=== PATIENT | female | born 1930 | race Caucasian/White ===

== ENCOUNTER → 2018-01-18 | Outpatient (CLI) | payer MEDICARE, OTHER ==
[~2018-01-18] MED LIST: ADVIL200 MG PO; ALEVE; ALEVE220 M1 PO; ASPIRIN81 M1; ASPIRIN81 MG PO; DIAPER RASH OI113 GM TOP; DIOVAN HCT 1601 EAC1 PO; DIOVAN160 MG PO; EXCEDRIN MIGRA1 EAC3 PO; HYDROXYZINE; I-CAPS AREDS S1 EACH; I-CAPS WITH LU1 EACH PO; LEVOTHYROXINE100 MCG; LEVOTHYROXINE100 MCG PO; LUTEIN 15 MG S1 EACH PO; MICARDIS HCT 81 EACH; MYRBETRIQ50 MG PO; OMEPRAZOLE20 MG PO; PRILOSEC; PROPRANOLOL HCL60 M1; ULTRAM50 MG; proctozone TOP
[2018-01-18 09:28] LABS: BASOPHILS % 0.7 % (0.0-1.0); EOSINOPHILS # (AUTO) 0.4 (0.0-0.4); EOSINOPHILS % 7.5 % (0.0-6.0); HEMATOCRIT 35.7 % (34.2-44.1); HEMOGLOBIN 11.7 g/dL (12.0-16.0); LYMPHOCYTES % 36.4 % (18.0-39.1); MEAN CORPUSCULAR HEMOGLOBIN 30.1 pg (28-32); MEAN CORPUSCULAR HGB CONC 32.8 g/dL (31-35); MEAN CORPUSCULAR VOLUME 91.8 fL (81-99); MONOCYTES # (AUTO) 0.7 (0.2-0.8); MONOCYTES % 12.6 % (4.4-11.3); NEUTROPHILS # (AUTO) 2.4 (2.1-6.9); NEUTROPHILS % 42.6 % (38.7-80.0); PLATELET COUNT 169 x10e3/uL (140-360); RED BLOOD COUNT 3.89 x10e6/uL (3.6-5.1); RED CELL DISTRIBUTION WIDTH 12.7 % (11.7-14.4)
[2018-01-18 10:08] LABS: THYROID STIMULATING HORMONE 0.005 uIU/mL (0.350-4.940)
== END ==
LOC: LAB 09:11
PROVIDERS: ATTEND General Practice
DX: R11.0 Nausea (principal); E03.9 Hypothyroidism, unspecified
CPT/HCPCS: 36415; 82947; 84443; 85025

== ENCOUNTER → 2018-04-15 | Outpatient (CLI) | payer MEDICARE, OTHER | LOC: LAB 10:11 | PROVIDERS: ATTEND General Practice | DX: E03.9 Hypothyroidism, unspecified (principal) | CPT/HCPCS: 36415; 84443 ==

== ENCOUNTER → 2018-05-27 | Day surgery (SDC) | payer MEDICARE, OTHER ==
[2018-05-23 11:51] LABS: BASOPHILS # (AUTO) 0.1 (0.0-0.1); BASOPHILS % 0.8 % (0.0-1.0); EOSINOPHILS # (AUTO) 0.3 (0.0-0.4); EOSINOPHILS % 3.1 % (0.0-6.0); HEMOGLOBIN 12.5 g/dL (12.0-16.0); LYMPHOCYTES % 24.3 % (18.0-39.1); MEAN CORPUSCULAR HEMOGLOBIN 31.8 pg (28-32); MEAN CORPUSCULAR HGB CONC 33.8 g/dL (31-35); MEAN CORPUSCULAR VOLUME 94.1 fL (81-99); MONOCYTES # (AUTO) 0.8 (0.2-0.8); NEUTROPHILS # (AUTO) 5.2 (2.1-6.9); NEUTROPHILS % 61.6 % (38.7-80.0); PLATELET COUNT 238 x10e3/uL (140-360); RED BLOOD COUNT 3.93 x10e6/uL (3.6-5.1); RED CELL DISTRIBUTION WIDTH 13.4 % (11.7-14.4)
[~2018-05-27] MED LIST changes: +FENTANYL CITRATE/PF 100MCG/2 ML INJ ONE; +GLYCOPYRROLATE INJ 1MG/ 5 ML SYR ONE; +LIDOCAINE HCL 2% LOCAL INJ 5 ML SDV VIAL INJ ONE; +MIDAZOLAM HCL 2 MG/2 ML VIAL ONE; +PROPOFOL IV EMULSION 10 MG/ML 20 ML VIAL ONE
--- NOTE | 2018-05-27 10:13 | Operative Report ---
DATE OF PROCEDURE: May 27, 2018 REFERRING PHYSICIAN: Dr. Melvin Funk PROCEDURE PERFORMED: Esophagogastroduodenoscopy with biopsies. INDICATIONS FOR EGD: Upper abdominal pain exacerbated with meals, excessive belching. MEDICATION: Patient was done under MAC. Please see anesthesiologist's note. PROCEDURE: With the patient in the left lateral decubitus position, the flexible fiberoptic Olympus gastroscope was introduced into the esophagus under direct visualization without any difficulty. The esophagus appeared to be within normal limits. The scope was then advanced with ease into the stomach, traversing a small hiatal hernia. Mucosa overlying the antrum and the body revealed some patchy erythema and low-grade to moderate edema, and biopsies were obtained and sent to stain for H. pylori. An approximately 6-mm ulcer with somewhat heaped-up margins without active bleeding or stigmata of recent hemorrhage was noted in the proximal antrum along the greater curvature, and biopsies were obtained. The pylorus was of normal contour and shape. It was intubated with ease, and the scope was advanced all the way to the 2nd portion of the duodenum. The scope was then withdrawn slowly. Mucosa overlying the proximal 2nd portion and the duodenal bulb appeared to be within normal limits. The scope was then withdrawn back into the stomach and retroflexed. The mucosa overlying the fundus and the cardia appeared to be within normal limits. The scope was then straightened out. Stomach was decompressed. Scope was subsequently withdrawn. Patient tolerated the procedure well. IMPRESSION 1. Normal esophagus. 2. Small hiatal hernia. 3. Gastritis, biopsied. Biopsies sent to stain for H. pylori. 4. Gastric ulcer, proximal antrum greater curvature, with somewhat heaped-up margins, biopsies obtained. PLAN: Follow up histology. Increase omeprazole to 40 mg 1 p.o. a.c. b.i.d. Job#: [id number] cc:MELVIN FUNK M.D.
== END | disposition home or self-care (01) ==
LOC: OR 06:52
PROVIDERS: ATTEND Internal Medicine Gastroenterology
DX: K25.9 Gastric ulcer, unspecified as acute or chronic, without hemorrhage or perforation (principal); K31.7 Polyp of stomach and duodenum; K29.50 Unspecified chronic gastritis without bleeding; K44.9 Diaphragmatic hernia without obstruction or gangrene; K20.9 Esophagitis, unspecified; I10 Essential (primary) hypertension; I44.4 Left anterior fascicular block; E03.9 Hypothyroidism, unspecified; Z88.2 Allergy status to sulfonamides; Z01.810 Encounter for preprocedural cardiovascular examination; Z01.812 Encounter for preprocedural laboratory examination; Z79.82 Long term (current) use of aspirin; Z86.73 Personal history of transient ischemic attack (TIA), and cerebral infarction without residual deficits
CPT/HCPCS: 36415; 43239; 85025; 88305; 88312; 93005; J2001; J2250; J3490

== ENCOUNTER → 2018-06-15 | Outpatient (CLI) | payer MEDICARE, OTHER ==
[~2018-06-15] MED LIST changes: -FENTANYL CITRATE/PF 100MCG/2 ML INJ ONE; -GLYCOPYRROLATE INJ 1MG/ 5 ML SYR ONE; -LIDOCAINE HCL 2% LOCAL INJ 5 ML SDV VIAL INJ ONE; -MIDAZOLAM HCL 2 MG/2 ML VIAL ONE; -PROPOFOL IV EMULSION 10 MG/ML 20 ML VIAL ONE
--- NOTE | 2018-06-15 09:32 | Diagnostic Imaging Report ---
PROCEDURE:ABDOMINAL ULTRASOUND COMPARISON:CT abdomen and pelvis 04/16/2017. INDICATIONS:Abdomen Pain FINDINGS: Liver: 12 cm in length in the right midclavicular line. Normal hepatic parenchymal echogenicity. No focal mass. Main portal vein: 1.2 cm in caliber. Hepatopedal flow. Gallbladder: No shadowing calculus, wall thickening, or pericholecystic fluid. Common Bile Duct: 0.5 cm in caliber. No echogenic filling defect. Sonographic Grier's sign: Reported as negative. Right kidney: 9.1 cm in length. No solid or cystic mass, echogenic calculi, or hydronephrosis. Extrarenal pelvis again noted, similar to that seen on comparison CT. Normal parenchymal echogenicity. Left kidney: 8.9 cm in length. No solid or cystic mass, echogenic calculi, or hydronephrosis. Normal parenchymal echogenicity. Spleen: 7.4 cm in length. Uniform parenchymal echotexture. Pancreas: The visualized portions of the pancreas are normal. Inferior vena cava: Patent. Aorta: Non-aneurysmal. Ascites: None. CONCLUSION: Unremarkable abdominal ultrasound. Dictated by: Sav Craig M.D. on 06/15/2018 at 8:29 Electronically approved by: Sav Craig M.D. on 06/15/2018 at 8:29
== END ==
LOC: US 07:34
PROVIDERS: ATTEND Internal Medicine Gastroenterology
DX: R10.9 Unspecified abdominal pain (principal)
CPT/HCPCS: 76700

== ENCOUNTER → 2019-05-18 | Outpatient (CLI) | payer MEDICARE, OTHER | LOC: LAB 10:58 | PROVIDERS: ATTEND General Practice | DX: E03.9 Hypothyroidism, unspecified (principal) | CPT/HCPCS: 36415; 84443 ==

== ENCOUNTER 2019-06-01 23:03 | Observation (INO) | payer MEDICARE, OTHER ==
[~2019-06-01] VITALS: Ht 160 cm; Wt 68.0 kg
--- OUTSIDE RECORDS SUMMARY | 2019-06-01 23:07 | XMS REPORT | Clinical Summary ---
Author Author [facility] Organization [facility] Address Unknown Phone Unavailable Care Team Providers Care Retail Loan Officer Name Role Phone PCP Unavailable Allergies Not on File Medications Not on file Active Problems Not on file Social History Date Tobacco Use Types Packs/Day Years Used Never Assessed Sex Assigned at Date Recorded Not on file Industry Job Start Date Occupation Not on file Not on file Not on file Travel End Travel History Travel Start No recent travel history available. Last Filed Vital Signs Not on file Plan of Treatment Not on file Results Not on fileafter 05/31/2018 Insurance Payer Benefit Subscriber ID Type Phone Address Plan / Group MEDICARE MEDICARE A xxxxxxxxxx Medicare B MCR SUPPLEMENT/INDIVIDUAL GENERIC xxxxxxxxxx Medigap MEDICARE SUPPLEMENT (Home) [place] [address]
--- OUTSIDE RECORDS SUMMARY | 2019-06-01 23:07 | XMS REPORT | Clinical Summary ---
Author Author Azeem [facility] Organization [facility] Address Unknown Phone Unavailable Care Team Providers Care Apple Turner Name Role Phone Asked, No Pcp PCP Unavailable Allergies Comments Active Allergy Reactions Severity Noted Date Sulfa (Sulfonamide Itching 11/26/2016 Antibiotics) Medications No known medications Active Problems Not on file Social History Date Tobacco Use Types Packs/Day Years Used Never Assessed Sex Assigned at Date Recorded Not on file Industry Job Start Date Occupation Not on file Not on file Not on file Travel End Travel History Travel Start No recent travel history available. Last Filed Vital Signs Not on file Plan of Treatment Health Maintenance Due Date Last Done Comments SHINGLES VACCINES (#1) 1982 65+ PNEUMOCOCCAL VACCINE 1997 (1 of 2 - PCV13) INFLUENZA VACCINE 06/29/2019 Results Not on fileafter 05/31/2018 Insurance Type Payer Benefit Subscriber ID Effective Phone Address Plan / Dates Group Medicare MEDICARE MEDICARE xxxxxxxxxx 1997-P AZEEM, PART A AND resent [place] B Commercial [employer] xxxxxxxxxx 2012- L LIFE INS Present [employer] [place] Advance Directives Patient has advance care planning documents on file. For more information, lindsey mosher contact: Azeem Miller [address] [place] [address]
--- OUTSIDE RECORDS SUMMARY | 2019-06-01 23:08 | XMS REPORT ---
Author [facility] Address Unknown Phone Unavailable Care Team Providers Care Plasma Specialist Name Role Phone VLADISLAV MCCLENDON Unavailable Unavailable Problems This patient has no known problems. Allergies, Adverse Reactions, Alerts This patient has no known allergies or adverse reactions. Medications This patient has no known medications. Results Test Description Test Time Test Comments Text Results Atomic Results Result Comments US ABDOMEN COMPLETE 2018-06-15 08:29:00 [place] [address] Patient Name: STEVIE RAMIRES MR #: [id number] : 1930 Age/Sex: 87/F Req #: [id number] Adm Physician: Ordered by: VLADISLAV MCCLENDON MD Report #: [id number] Location: US Room/Bed: Procedure: [id number] US/US ABDOMEN COMPLETE Exam Date: 06/15/18 Exam Time: 0734 REPORT STATUS: Signed PROCEDURE: ABDOMINAL ULTRASOUND COMPARISON: CT abdomen and pelvis 04/16/2017. INDICATIONS: Abdomen Pain FINDINGS: Liver: 12 cm in length in the right midclavicular line. Normal hepatic parenchymal echogenicity. No focal mass. Main portal vein: 1.2 cm in caliber. Hepatopedal flow. Gallbladder: No shadowing calculus, wall thickening, or pericholecystic fluid. Common Bile Duct: 0.5 cm in caliber. No echogenic filling defect. Sonographic Grier's sign: Reported as negative. Right kidney: 9.1 cm in length. No solid or cystic mass, echogenic calculi, or hydronephrosis. Extrarenal pelvis again noted, similar to that seen on comparison CT. Normal parenchymal echogenicity. Left kidney: 8.9 cm in length. No solid or cystic mass, echogenic calculi, or hydronephrosis. Normal parenchymal echogenicity. Spleen: 7.4 cm in length. Uniform parenchymal echotexture. Pancreas: The visualized portions of the pancreas are normal. Inferior vena cava: Patent. Aorta: Non-aneurysmal. Ascites: None. CONCLUSION: Unremarkable abdominal ultrasound. Dictated by: Tu Yap M.D. on 06/15/2018 at 8:29 Electronically approved by: Tu Yap M.D. on 06/15/2018 at 8:29 Dictated By: TU YAP MD 8 Transcribed By: HAROON on 06/15/18828 COPY TO: VLADISLAV MCCLENDON MD
[2019-06-01] MEDS ORDERED: HYDROCHLOROTHIA50 MG PO (23:19)
[2019-06-01] MEDS ORDERED: ASPIRIN 81 MG CHEW TAB PO ONE (23:30)
[2019-06-01 23:38] LABS: BASOPHILS % 0.5 % (0.0-1.0); EOSINOPHILS # (AUTO) 0.3 (0.0-0.4); EOSINOPHILS % 3.5 % (0.0-6.0); HEMATOCRIT 34.7 % (34.2-44.1); HEMOGLOBIN 11.8 g/dL (12.0-16.0); LYMPHOCYTES # (AUTO) 2.6 (1.0-3.2); LYMPHOCYTES % 31.6 % (18.0-39.1); MEAN CORPUSCULAR HEMOGLOBIN 31.6 pg (28-32); MONOCYTES # (AUTO) 1.1 (0.2-0.8); MONOCYTES % 13.5 % (4.4-11.3); NEUTROPHILS # (AUTO) 4.2 (2.1-6.9); NEUTROPHILS % 50.7 % (38.7-80.0); PLATELET COUNT 227 x10e3/uL (140-360); RED BLOOD COUNT 3.73 x10e6/uL (3.6-5.1); RED CELL DISTRIBUTION WIDTH 12.3 % (11.7-14.4)
[2019-06-01 23:56] LABS: ALBUMIN/GLOBULIN RATIO 1.2 (0.8-2.0); ANION GAP 13.7 mmol/L (8-16); CALCIUM 9.6 mg/dL (8.4-10.2); CREATININE, SERUM 1.16 mg/dL (0.57-1.11); POTASSIUM 4.7 mmol/L (3.5-5.1)
[2019-06-02] VITALS (8 sets, daily range): BP systolic 128–156; BP diastolic 63–77
[2019-06-02 00:02] LABS: CREATINE KINASE MB 7.8 ng/mL (0-5.0)
--- NOTE | 2019-06-02 00:24 | Diagnostic Imaging Report ---
EXAMINATION: CHEST SINGLE (PORTABLE) COMPARISON: Chest x-ray 04/06/2011 INDICATION: Weakness ^ERMD ORDER ^[id number] ^2355 ^Y DISCUSSION: Frontal view of the chest obtained at 0007 hours. HEART AND MEDIASTINUM: The heart is top normal in size to mildly enlarged LINES: None. LUNGS: The lungs are well inflated. Rounded soft tissue density over the dome of the left diaphragm is new and measures approximately 4 cm. No new findings in the right lung. No interstitial edema. Vascular markings are normal. PLEURA: No pleural effusion or pneumothorax. BONES AND SOFT TISSUES: Left humeral head prosthesis is stable. The bones are diffusely demineralized. No focal osseous lesions. The soft tissues are normal. IMPRESSION: New density over the dome of the left diaphragm. This may represent a summation shadow. Recommend evaluation with PA and lateral chest x-ray when clinically feasible. Signed by: Dr. Shanell Simpson MD on 06/02/2019 12:20 AM
--- NOTE | 2019-06-02 00:33 | Diagnostic Imaging Report ---
History:AMS, weakness Comparison studies:CT brain 05/27/2016 Technique: Axial images were obtained from the skull base to the vertex. Coronal and sagittal images reconstructed from the axial data. Intravenous contrast: None Dose modulation, iterative reconstruction, and/or weight based adjustment of the mA/kV was utilized to reduce the radiation dose to as low as reasonably achievable. Findings: Scalp/skull: No abnormalities. Extra-axial spaces: No masses. No fluid collections. Brain sulci: Mildly prominent. Ventricles: Mild compensatory dilatation. No hydrocephalus. Parenchyma: Few hypodensities in the supratentorial white matter are small vessel ischemic changes. Cortical-based hypodensity in the left posterior cerebellum with associated volume loss, related to remote insult. No masses, hemorrhage, acute or chronic cortical vascular insults. Sellar/suprasellar region: No abnormalities. Craniocervical junction: Patent foramen magnum. No Chiari one malformation. Incidental findings: Atherosclerotic calcifications in the carotid siphons . Impression: No acute abnormalities. Chronic findings: 1. Mild generalized volume loss. 2. Mild supratentorial white matter small vessel ischemic changes. 3. Remote insult of the left posterior cerebellum Signed by: DR Chago Downing M.D. on 06/02/2019 12:29 AM
[2019-06-02 00:52] LABS: BILIRUBIN,URINE NEGATIVE (NEGATIVE); CLARITY,URINE CLEAR (CLEAR); COLOR,URINE YELLOW (YELLOW); KETONES,URINE NEGATIVE (NEGATIVE); LEUKOCYTE ESTERASE ,URINE NEGATIVE (NEGATIVE); NITRITE,URINE NEGATIVE (NEGATIVE); PROTEIN,URINE DIPSTICK NEGATIVE (NEGATIVE); URINE UROBILINOGEN 0.2 mg/dL (0.2 - 1)
[2019-06-02 01:08] LABS: BACTERIA,URINE FEW /HPF; EPITHELIAL CELLS,URINE FEW /LPF; WBC,URINE (MAN) 0-5 /HPF (0-5)
[2019-06-02] MEDS: SODIUM CHLORIDE 0.9% 1000ML 1,000 ML IV SCH ×3 (01:20→21:44)
[2019-06-02] MEDS ORDERED: SODIUM CHLORIDE 0.9% 1000ML 1,000 ML IV SCH (01:51)
--- OUTSIDE RECORDS SUMMARY | 2019-06-02 02:10 | XMS REPORT | Clinical Summary ---
Author Author Azeem [facility] Organization [facility] Address Unknown Phone Unavailable Care Team Providers Care Men'S Leather Dress Belt Maker Name Role Phone Asked, No Pcp PCP [...] INFLUENZA VACCINE 06/29/2019 Results Not on fileafter 06/01/2018 Insurance Type Payer Benefit Subscriber ID Effective Phone Address Plan / Dates Group Medicare MEDICARE MEDICARE xxxxxxxxxx 1997-P AZEEM, PART A AND resent [place] B Commercial [employer] xxxxxxxxxx 2012- L LIFE INS Present [employer] [place] Advance Directives Patient has advance care planning documents on file. For more information, lindsey mosher contact: Azeem Miller [address] [place] [address]
--- OUTSIDE RECORDS SUMMARY | 2019-06-02 02:10 | XMS REPORT | Clinical Summary ---
Author Author [facility] Organization [facility] Address Unknown Phone Unavailable Care Team Providers Care Pricing Associate Name Role Phone PCP Unavailable Allergies Not [...] Not on file Results Not on fileafter 06/01/2018 Insurance Payer Benefit Subscriber ID Type Phone Address Plan / Group MEDICARE MEDICARE A xxxxxxxxxx Medicare B MCR SUPPLEMENT/INDIVIDUAL GENERIC xxxxxxxxxx Medigap MEDICARE SUPPLEMENT (Home) [place] [address]
--- NOTE | 2019-06-02 02:47 | NUR ---
RCV PT FROM ER VIA WHEELCHAIR AAOX3. NO S/S OF DISTRESS NOTED. NO COMPLAINTS OF PAIN. ORIENTED PT AND FAMILY TO UNIT. BED LOCKED AND IN LOW POSITION. CALL LIGHT WITHIN REACH. SIDE RAILS UPX2. HOB ELEVATED. BED ALARM ON.
--- NOTE | 2019-06-02 07:07 | NUR ---
H&P cc: pain HPI: 88yoF, PCP , developed general weakness, with difficulty standing, found to have elevated CK and hyponatremia. PAST MEDICAL HISTORY: HTN, TIA, hypothyroidism, sigmoid colitis PShx: knee x2; left hsoulder; hysterectomy; cataracts allergies; see emr fh/Sh; ; no cigs/etoh Meds; see MAR ROS; no f/c/s/N/V/D/[place]/vision changes/cp/sob/skin rash v/s; revd PE: tired appearing anicteric ns1s2 mod bs soft nt nd no e/t a&ox3; amato skin dry n. affect labs/meds revd A/P: Hyponatremia SIGRID Acute rhabdomyolysis HTn Hypothyroidism Physical deconditioning PLAN IVF PT consult Add BB; hold ARB Restart synthroid SCD/pepcid Jose Maria Madrid MD, PhD.
[2019-06-02] MEDS: METOPROLOL TARTRATE 50 MG TAB PO SCH ×3 (08:26→16:23)
[2019-06-02] MEDS: PANTOPRAZOLE SOD 40 MG TABEC PO SCH (08:26)
[2019-06-02] MEDS ORDERED: ASPIRIN 81 MG CHEW TAB ONE (08:29)
[2019-06-02] MEDS ORDERED: ASPIRIN 81 MG CHEW TAB PO ONE (08:30)
[2019-06-02] MEDS ORDERED: LEVOTHYROXINE SODIUM 100 MCG TAB PO SCH (09:00)
--- NOTE | 2019-06-02 12:47 | Consultation ---
DATE OF CONSULTATION: 06/02/2019 Neurology Consult Note HISTORY OF PRESENT ILLNESS: Ms. Morales is an 88-year-old right-hand dominant woman with past medical history significant for hypertension, admitted to [facility] on June 01, 2019 with confusion and generalized weakness. On the morning of admission, the patient experienced rather abrupt onset of confusion, generalized weakness, and blurred vision affecting both eyes. Ms. Morales further describes her confusion as "saying things that did not make sense." The patient does not report a visual field cut or other disturbance, dysarthria, aphasia or focal weakness or numbness. Ms. Morales does report poor balance and impairment of gait, which she attributes to generalized weakness. Ms. Morales does not report dizziness or headache associated with the above symptoms. She does not report decreased appetite, decreased oral intake, nausea, vomiting, or diarrhea in the days preceding the onset of the above symptoms. According to the patient, the blurred vision resolved rather quickly (within a few minutes). While the confusion and generalized weakness did improve, both persisted into the evening of June 01, 2019. At that time, Ms. Morales was brought to the emergency center at [facility] by family members for further evaluation of her symptoms. Upon arrival in the emergency center, the patient was afebrile with a blood pressure of 199/97 mmHg and a pulse of 78 beats per minute. Documentation of the patient's neurological examination is unavailable for review at this time. Routine laboratory data performed in the emergency center revealed the patient to be hyponatremic with a sodium of 129, possibly dehydrated with an elevated creatinine of 1.16 and an estimated GFR 44, as well as mildly elevated creatine kinase. A CT of the brain without contrast was performed while the patient was in the emergency center. This study did not reveal evidence of recent large territorial ischemia or hemorrhage. Ms. Morales was then admitted to [facility] under observation status for further evaluation and treatment of her symptoms. Ms. Morales does not report experiencing similar symptoms previously. The patient does report compliance with her home medications, including aspirin 81 mg by mouth daily. REVIEW OF SYSTEMS: Confusion, blurred vision, generalized weakness, impairment of balance and gait. Otherwise, a 12-point review of systems is negative. PAST MEDICAL HISTORY: Hypertension, thyroid disease, gastroesophageal reflux disease. PAST SURGICAL HISTORY: Bilateral cataract removal, bilateral knee replacement, pinning of the left shoulder, appendectomy. PAST HOSPITALIZATIONS: Surgeries/procedures as listed, childbirth x2, multiple hospitalizations for infections, most recently colitis. FAMILY MEDICAL HISTORY: The patient's paternal and maternal grandparents are . Their medical histories are unknown. Ms. Morales's father is . His medical history is unknown. The patient's mother from natural causes. Ms. Morales had 3 siblings, one brother and two sisters, all of whom are . Ms. Morales's brother had cancer. Her sisters medical histories are unknown. Ms. Morales has two children, a son and a daughter, both of whom are alive. The son has a medical history significant for nephrolithiasis and a prior stroke with residual loss of vision in the left eye. The patient's daughter is healthy. SOCIAL HISTORY: Ms. Morales is a . She is retired. The patient does not report current or prior tobacco, alcohol, or recreational drug use. HOME MEDICATIONS: Aspirin 81 mg by mouth daily, hydrochlorothiazide 50 mg by mouth daily, valsartan 160 mg by mouth daily, levothyroxine 150 mcg by mouth daily, omeprazole 40 mg by mouth daily. HOSPITAL MEDICATIONS: Levothyroxine, metoprolol, Protonix, sodium chloride. ALLERGIES: SULFA. NO KNOWN FOOD ALLERGIES. NO KNOWN LATEX ALLERGIES. NO KNOWN ALLERGIES TO IODINE OR OTHER CONTRAST MATERIALS. PHYSICAL EXAMINATION: VITAL SIGNS: Height 65 inches, weight 150 pounds, BMI 26.6 kg/m2, blood pressure 136/64 mmHg, pulse 80 beats per minute, respiratory rate 20 breaths per minute, and oxygen saturation 95% on room air. GENERAL: The patient is awake and alert, does not appear distressed. HEENT: Normocephalic, atraumatic. Pupils are surgical. Moist mucous membranes. NECK: Supple. No appreciable thyromegaly. No appreciable carotid bruits. CARDIOVASCULAR: S1, S2, regular rate and rhythm. No murmurs, rubs, or gallops. RESPIRATORY: Clear to auscultation bilaterally. No wheezes, rhonchi, or rales. EXTREMITIES: The skin is warm and dry. No clubbing, cyanosis, or edema. The posterior tibial and dorsalis pedis pulses are 2+ and symmetric. SKIN: No rashes or lesions. NEUROLOGIC: Memory/Attention: The patient is awake and alert, oriented to person, place, time, and situation. Cranial Nerves: Cranial nerve 1 - not tested. Cranial nerve 2, 3, 4, and 6 - pupils are surgical. Extraocular movements intact. No nystagmus. Cranial nerve 5 - sensation to light touch and pinprick is intact in the bilateral V1 through V3 distributions. Strength of the temporalis and masseter muscles are within normal limits. Cranial nerve 7 - the face is symmetric as are all facial movements. Strength is within normal limits. Cranial nerve 8- hearing is intact to finger rub bilaterally. Cranial nerve 9, 10-the soft palate elevates equally and symmetrically. Cranial nerve 11 - normal strength of the bilateral sternocleidomastoid and trapezius muscles. Cranial nerve 12 - the tongue protrudes midline and moves symmetrically from hiwl-vr-rfos. Strength: Bulk is normal. Strength is 5/5 in the bilateral deltoids, biceps, triceps, wrist flexors and extensors, finger flexors and extensors, intrinsic hand muscles, hip flexors, knee flexors and extensors, ankle dorsiflexion and plantar flexion, and intrinsic foot muscles. Tone is normal. DTRs: Deep tendon reflexes are 1+ and symmetric at the triceps, biceps, brachioradialis, and patellas. Deep tendon reflexes are absent and symmetric at the Achilles. Plantar responses are flexor bilaterally. Sensation: Sensation is intact to light touch and pinprick in both arms and both legs. Cerebellar: Mabhyw-ouii-xfehqn and heel-rico movements are intact without dysmetria or other impairment. Gait: Deferred. Speech: Spontaneous speech is normal without appreciable dysarthria or aphasia. Repetition is intact. Involuntary Movements: None. Pronator Drift: None. LABORATORY DATA: A comprehensive metabolic panel is significant for sodium of 129, chloride of 94, creatinine of 1.16, estimated GFR 44, AST of 55. Creatine kinase is elevated at 650, 514. CK-MB is elevated at 7.80. Troponin I is within normal limits. The CBC with differential and platelets reveals a white blood cell count of 8.32 with 50.7% neutrophils, 31.6% lymphocytes, 13.5% monocytes, 3.5% eosinophils, and 0.5% basophils. The hemoglobin and hematocrit are 11.8 and 34.7, respectively. The platelet count is 227. Urinalysis was significant only for 6-10 red blood cells. DIAGNOSTIC STUDIES: Electrocardiogram of 06/01/2019: Sinus rhythm at 80 beats per minute with first-degree AV block. Left axis deviation. Chest x-ray of 06/01/2019: New density over the dome of the left diaphragm. This may represent a summation shadow. Recommend evaluation with PA and lateral chest x- ray when clinically feasible. CT of the brain without contrast 06/01/2019: On my review, there is no evidence of recent large territorial ischemia, hemorrhage, mass, or mass effect. 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 There is mild diffuse cerebral atrophy with compensatory dilatation of the ventricles, appropriate for the patient's age. There are findings compatible with mild chronic small-vessel ischemic disease. Echocardiogram 06/02/2019: Ejection fraction 40% to 45%. Mild mitral and tricuspid regurgitation. Trace aortic insufficiency. ASSESSMENT AND PLAN: Ms. Morales is an 88-year-old right-hand dominant woman with past medical history as detailed, admitted to [facility] on June 01, 2019 with confusion and generalized weakness of several hours duration. The patient's neurological examination is nonfocal. Her laboratory data and other diagnostic studies have been reviewed and are documented above. In my opinion, Ms. Morales has not experienced a transient ischemic attack, stroke, or other neurological disorder. Her symptoms may be attributed to hyponatremia with possible dehydration. Thank you for this consultation. There are no further recommendations from the Neurology Service at this time. Please call again with any questions or concerns. TIME SPENT: 50 minutes. Tracy Mathis MD CP/KATY /[id number]
--- NOTE | 2019-06-02 12:59 | Diagnostic Imaging Report ---
EXAMINATION: CHEST 2 VIEWS INDICATION: COMPARISON: FINDINGS: TUBES and LINES: EKG leads overlie the thorax. LUNGS: The lung volumes are normal. No focal consolidation or pulmonary edema. Previously described rounded soft tissue density over the dome of the left diaphragm represents summation of diaphragmatic contour on lateral radiograph. PLEURA: No pleural effusion or pneumothorax. HEART AND MEDIASTINUM: The cardiomediastinal silhouette is normal in size and contour. BONES AND SOFT TISSUES: No acute fracture or dislocation. Status post left shoulder arthroplasty. Severe degenerative changes of the right glenohumeral joint. UPPER ABDOMEN: No free air under the diaphragm. Atherosclerotic calcifications of the abdominal aorta. IMPRESSION: No focal pneumonia or pulmonary edema. Previously described rounded soft tissue density over the dome of the left diaphragm represents summation of diaphragmatic contour on lateral radiograph. Signed by: Trudy Sher MD on 06/02/2019 12:56 PM
--- NOTE | 2019-06-02 14:01 | Diagnostic Imaging Report ---
Examination: MRI BRAIN WITHOUT CONTRAST History: TIA. Comparison studies: Head CT performed June 02, 2019 Technique: Sagittal T2; axial DWI, FLAIR, GRE or SWI, T1, Coronal FLAIR. Intravenous contrast: None Findings: Scalp: No abnormal signal. No masses. Bone marrow: Normal in signal intensity. Brain volume: Adequate for age. No volume loss. Ventricles: Normal in size and configuration. No hydrocephalus. Extra-axial spaces: No abnormalities. Parenchyma: There are punctate and patchy areas of T2/FLAIR hyperintensity in the periventricular and subcortical and pontine white matter, nonspecific. Chronic lacunar infarcts are demonstrated in the bilateral putamina, left thalamus and right cerebellum. Chronic cortical based infarct is demonstrated in the left mid cerebellum No masses, hemorrhage, or acute vascular insults. Suprasellar and sellar region: No abnormalities. Craniocervical junction: No abnormalities. The foramen magnum is patent. No Chiari malformations. Vessels: Normal flow-voids in the arteries and sinuses. Additional findings:None. IMPRESSION: 1. No acute intracranial abnormalities. 2. Mild chronic microvascular ischemic change. 3. Chronic infarcts, as above. Signed by: Dr. Kalpana Tim M.D. on 06/02/2019 1:58 PM
--- NOTE | 2019-06-02 18:54 | NUR ---
BEDSIDE SHIFT REPORT PERFORMED, RECEIVED PT IN BATHROOM , PT AMBULATORY WITHOUT ASSIST BACK TO BED. PT IS AAOX3, RR EVEN AND NON-LABORED, ON ROOM AIR. NO S/SX OF DISTRESS NOTED. LEFT PT LAYING SEMI FOWLERS IN BED, BED IN LOW LOCKED POSITION, SIDE RAILS UPX2, CALL LIGHT AND PHONE WITHIN REACH.
[2019-06-03] VITALS (7 sets, daily range): BP systolic 110–151; BP diastolic 58–71
[2019-06-03] MEDS: LEVOTHYROXINE SODIUM 100 MCG TAB PO SCH (04:35)
[2019-06-03] MEDS: SODIUM CHLORIDE 0.9% 1000ML 1,000 ML IV SCH ×3 (07:59→20:00)
[2019-06-03] MEDS: METOPROLOL TARTRATE 50 MG TAB PO SCH ×2 (07:59→16:14)
[2019-06-03] MEDS: PANTOPRAZOLE SOD 40 MG TABEC PO SCH (07:59)
[2019-06-03 11:34] LABS: ANION GAP 12.2 mmol/L (8-16); CALCIUM 8.8 mg/dL (8.4-10.2); CREATININE, SERUM 0.94 mg/dL (0.57-1.11); POTASSIUM 5.2 mmol/L (3.5-5.1)
--- NOTE | 2019-06-03 13:22 | NUR ---
IM-progress note O/N: no events ROS; no f/c/s/N/V/D/[place]/vision changes/cp/sob/skin rash v/s; revd PE: tired appearing anicteric ns1s2 mod bs soft nt nd no e/t a&ox3; amato skin dry n. 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
[2019-06-03] MEDS ORDERED: METOPROLOL TART50 MG PO (13:27)
[2019-06-03 18:39] LABS: POTASSIUM 5.2 mmol/L (3.5-5.1)
--- NOTE | 2019-06-03 18:47 | NUR ---
CALLED GARY CHRISTIANSON REGARDING POTASSIUM=5.2 AND CREATINE KINASE 498, NEW ORDER RECEIVED.
--- NOTE | 2019-06-03 18:57 | NUR ---
WALKING ROUNDS PERFORMED, RECEIVED PT LAYING SEMI FOWLERS IN BED, AAOX3, RR EVEN AND NON-LABORED, ON ROOM AIR. NO S/SX OF DISTRESS NOTED. LEFT PT LAYING SEMI FOWLERS IN BED, BED IN LOW LOCKED POSITION, SIDE RAILS UPX2, CALL LIGHT AND PHONE WITHIN REACH.
[2019-06-04] VITALS: BP 140/63
[2019-06-04] MEDS: SODIUM CHLORIDE 0.9% 1000ML 1,000 ML IV SCH (03:38)
[2019-06-04 04:00] VITALS: BP 132/60
[2019-06-04 05:07] LABS: BASOPHILS % 0.6 % (0.0-1.0); EOSINOPHILS # (AUTO) 0.3 (0.0-0.4); EOSINOPHILS % 6.1 % (0.0-6.0); HEMATOCRIT 30.6 % (34.2-44.1); HEMOGLOBIN 10.1 g/dL (12.0-16.0); LYMPHOCYTES # (AUTO) 1.8 (1.0-3.2); LYMPHOCYTES % 35.5 % (18.0-39.1); MEAN CORPUSCULAR HEMOGLOBIN 31.3 pg (28-32); MEAN CORPUSCULAR VOLUME 94.7 fL (81-99); MONOCYTES # (AUTO) 0.7 (0.2-0.8); MONOCYTES % 12.8 % (4.4-11.3); NEUTROPHILS # (AUTO) 2.3 (2.1-6.9); NEUTROPHILS % 44.8 % (38.7-80.0); PLATELET COUNT 172 x10e3/uL (140-360); RED BLOOD COUNT 3.23 x10e6/uL (3.6-5.1); RED CELL DISTRIBUTION WIDTH 12.6 % (11.7-14.4)
[2019-06-04 05:24] LABS: BLOOD UREA NITROGEN 18 mg/dL (7-26); BUN/CREATININE RATIO 23 (6-25); CALCIUM 8.2 mg/dL (8.4-10.2); CARBON DIOXIDE 22 mmol/L (22-29); CHLORIDE 106 mmol/L (98-107); EST GLOMERULAR FILTRATION RATE > 60 ML/MIN (60-); GLUCOSE 84 mg/dL (74-118); SODIUM 135 mmol/L (136-145)
[2019-06-04] MEDS: LEVOTHYROXINE SODIUM 100 MCG TAB PO SCH (05:29)
[2019-06-04 08:00] VITALS: BP 134/66
[2019-06-04 08:28] VITALS: BP 134/66
[2019-06-04] MEDS: METOPROLOL TARTRATE 50 MG TAB PO SCH (08:31)
[2019-06-04] MEDS: PANTOPRAZOLE SOD 40 MG TABEC PO SCH (08:31)
[2019-06-04 12:07] VITALS: BP 129/57
[2019-06-04] MEDS ORDERED: SODIUM CHLORIDE 0.9% 500ML 500 ML IV ONE ×2 (14:21→14:30)
--- NOTE | 2019-06-04 15:00 | NUR ---
Pt discharged at this time. Pt aox4 at time of discharge. Denies any pain at this time. Pt verbalized understanding of all discharge instructions and follow up appts.
== END 2019-06-04 15:27 | disposition home or self-care (01) ==
LOC: ER 23:03 → ERHOLD 06-02 02:07 → MED/SURG 06-02 02:47
PROVIDERS: ADMIT Internal Medicine; ATTEND Internal Medicine
DX: E87.1 Hypo-osmolality and hyponatremia (principal); I65.22 Occlusion and stenosis of left carotid artery; N17.9 Acute kidney failure, unspecified; I10 Essential (primary) hypertension; M62.82 Rhabdomyolysis; K21.9 Gastro-esophageal reflux disease without esophagitis; Z88.2 Allergy status to sulfonamides; E03.9 Hypothyroidism, unspecified; R53.81 Other malaise; R53.1 Weakness; R41.0 Disorientation, unspecified; Z79.82 Long term (current) use of aspirin; H53.2 Diplopia; R26.89 Other abnormalities of gait and mobility; Z86.73 Personal history of transient ischemic attack (TIA), and cerebral infarction without residual deficits
CPT/HCPCS: 36415 ×3; 70450; 70551; 71045; 71046; 80048 ×2; 80053; 81001; 82550 ×4; 82553; 84132; 84484; 85025 ×2; 93005 ×2; 93306; 93880; 96360; 96361; 97116 ×2; 97161; 99284; G0378 ×3; J7030 ×3; S0164 ×3

== ENCOUNTER 2019-06-26 20:35 | Emergency (ER) | payer MEDICARE, OTHER ==
[~2019-06-26] VITALS: Ht 160 cm; Wt 68.0 kg
[~2019-06-26 20:35] MED LIST changes: +HYDROCHLOROTHIA50 MG PO; +METOPROLOL TART50 MG PO
--- OUTSIDE RECORDS SUMMARY | 2019-06-26 20:40 | XMS REPORT | Clinical Summary ---
Author Author [facility] Organization [facility] Address Unknown Phone Unavailable Care Team Providers Care Scientific Research Associate Name Role Phone PCP Unavailable Allergies [...] Not on file Results Not on fileafter 06/25/2018 Insurance Payer Benefit Subscriber ID Type Phone Address Plan / Group MEDICARE MEDICARE A xxxxxxxxxx Medicare B MCR SUPPLEMENT/INDIVIDUAL GENERIC xxxxxxxxxx [employer] MEDICARE SUPPLEMENT (Home) [place] [address]
--- OUTSIDE RECORDS SUMMARY | 2019-06-26 20:40 | XMS REPORT | Clinical Summary ---
Author Author [facility] Organization [facility] Address Unknown Phone Unavailable Care Team Providers Care Bilingual Branch Manager Name Role Phone Asked, No Pcp PCP [...] INFLUENZA VACCINE 06/29/2019 Results Not on fileafter 06/25/2018 Insurance Type Payer Benefit Subscriber ID Effective Phone Address Plan / Dates Group Medicare MEDICARE MEDICARE xxxxxxxxxx 1997-P AZEEM, PART A AND resent [place] B Commercial [employer] xxxxxxxxxx 2012- L LIFE INS Present [employer] Advance Directives Patient has advance care planning documents on file. For more information, lindsey mosher contact: Azeem Miller [address] [place] [address]
--- NOTE | 2019-06-26 21:58 | Diagnostic Imaging Report ---
History:Left arm and leg numbness Comparison studies: Head CT and brain MRI on 06/02/2019 Technique: Axial images were obtained from the skull base to the vertex. Coronal and sagittal images reconstructed from the axial data. Dose modulation, iterative reconstruction, and/or weight based adjustment of the mA/kV was utilized to reduce the radiation dose to as low as reasonably achievable. Intravenous contrast: None Findings: Scalp/skull: No abnormalities. Extra-axial spaces: No masses. No fluid collections. Brain sulci: Mildly prominent. Ventricles: Mild compensatory dilatation. No hydrocephalus. Parenchyma: Subtle hypodensities in the supratentorial white matter are small vessel ischemic changes. Focal cortical encephalomalacic changes in the posterior cerebellar hemispheres are the result of old vascular insults. No masses, hemorrhage, acute or additional chronic cortical vascular insults. Sellar/suprasellar region: No abnormalities. Craniocervical junction: Patent foramen magnum. No Chiari one malformation. Incidental findings: Atherosclerotic calcifications in the carotid siphons . Impression: No acute abnormalities. No changes compared to the head CT or to the MRI on 06/02/2019 Chronic findings: 1. Mild generalized volume loss. 2. Mild supratentorial white matter small vessel ischemic changes. 3. Focal cortical insults in the posterior cerebellar hemispheres Signed by: Dr. Robbin Madden M.D. on 06/26/2019 9:55 PM
--- NOTE | 2019-06-26 22:22 | Diagnostic Imaging Report ---
EXAMINATION: CHEST SINGLE (PORTABLE) INDICATION: Transient ischemic attack COMPARISON: Chest radiograph 06/02/2019 FINDINGS: AP view TUBES and LINES: None. LUNGS: Lungs are well inflated. Stable smooth marginated round opacity along the left diaphragm consistent with focal diaphragm eventration. There is mild prominence of the central pulmonary vasculature, consistent with pulmonary venous congestion. PLEURA: No pleural effusion or pneumothorax. HEART AND MEDIASTINUM: The cardiomediastinal silhouette is unremarkable. BONES AND SOFT TISSUES: No acute osseous lesion. Left shoulder hemiarthroplasty, hardware intact. Degenerative changes in the right shoulder. Degenerative changes in the spine. Soft tissues are unremarkable. UPPER ABDOMEN: No free air under the diaphragm. IMPRESSION: No acute thoracic abnormality. Mild central pulmonary vascular congestion. Signed by: Rafael Benson DO on 06/26/2019 10:19 PM
[2019-06-26 22:23] LABS: BASOPHILS # (AUTO) 0.1 (0.0-0.1); BASOPHILS % 0.8 % (0.0-1.0); EOSINOPHILS # (AUTO) 0.3 (0.0-0.4); EOSINOPHILS % 3.6 % (0.0-6.0); HEMATOCRIT 34.9 % (34.2-44.1); HEMOGLOBIN 11.6 g/dL (12.0-16.0); LYMPHOCYTES # (AUTO) 2.7 (1.0-3.2); MEAN CORPUSCULAR HEMOGLOBIN 31.2 pg (28-32); MEAN CORPUSCULAR HGB CONC 33.2 g/dL (31-35); MEAN CORPUSCULAR VOLUME 93.8 fL (81-99); MONOCYTES # (AUTO) 1.1 (0.2-0.8); MONOCYTES % 15.5 % (4.4-11.3); NEUTROPHILS % 41.8 % (38.7-80.0); PLATELET COUNT 249 x10e3/uL (140-360); RED BLOOD COUNT 3.72 x10e6/uL (3.6-5.1); RED CELL DISTRIBUTION WIDTH 12.1 % (11.7-14.4)
[2019-06-26 22:44] LABS: ALBUMIN 3.9 g/dL (3.5-5.0); ALBUMIN/GLOBULIN RATIO 1.1 (0.8-2.0); ANION GAP 16.9 mmol/L (8-16); CALCIUM 9.3 mg/dL (8.4-10.2); CREATININE, SERUM 1.27 mg/dL (0.57-1.11); POTASSIUM 4.9 mmol/L (3.5-5.1)
[2019-06-26 22:52] LABS: CREATINE KINASE MB 9.9 ng/mL (0-5.0)
[2019-06-26 23:28] LABS: BILIRUBIN,URINE NEGATIVE (NEGATIVE); CLARITY,URINE CLEAR (CLEAR); COLOR,URINE YELLOW (YELLOW); KETONES,URINE NEGATIVE (NEGATIVE); LEUKOCYTE ESTERASE ,URINE NEGATIVE (NEGATIVE); NITRITE,URINE NEGATIVE (NEGATIVE); PROTEIN,URINE DIPSTICK NEGATIVE (NEGATIVE); URINE UROBILINOGEN 0.2 mg/dL (0.2 - 1)
[2019-06-26 23:48] LABS: RBC,URINE 21-50 /HPF (0-5)
[2019-06-26 23:49] LABS: BACTERIA,URINE MANY /HPF; EPITHELIAL CELLS,URINE FEW /LPF
[2019-06-27 01:02] LABS: CREATINE KINASE MB 8.5 ng/mL (0-5.0)
[2019-06-27 01:10] VITALS: BP 150/63
== END 2019-06-27 01:36 | disposition home or self-care (01) ==
LOC: ER 20:35
DX: R53.1 Weakness (principal); G45.9 Transient cerebral ischemic attack, unspecified; I10 Essential (primary) hypertension; E03.9 Hypothyroidism, unspecified; K21.9 Gastro-esophageal reflux disease without esophagitis; Z96.653 Presence of artificial knee joint, bilateral
CPT/HCPCS: 36415; 70450; 71045; 80053; 81001; 82550; 82553; 84484; 85025; 93005; 99284

== ENCOUNTER 2019-11-14 13:08 | Inpatient (IN) | payer MEDICARE, OTHER ==
[~2019-11-14] VITALS: Ht 160 cm; Wt 70.4 kg
[2019-11-14] MEDS ORDERED: ASPIRIN 81 MG CHEW TAB PO ONE (14:00)
[2019-11-14 14:21] LABS: BASOPHILS % 0.2 % (0.0-1.0); EOSINOPHILS % 0.1 % (0.0-6.0); HEMATOCRIT 35.6 % (34.2-44.1); HEMOGLOBIN 12.2 g/dL (12.0-16.0); LYMPHOCYTES # (AUTO) 0.6 (1.0-3.2); LYMPHOCYTES % 5.3 % (18.0-39.1); MEAN CORPUSCULAR HEMOGLOBIN 32.6 pg (28-32); MEAN CORPUSCULAR HGB CONC 34.3 g/dL (31-35); MEAN CORPUSCULAR VOLUME 95.2 fL (81-99); MONOCYTES # (AUTO) 1.2 (0.2-0.8); MONOCYTES % 9.6 % (4.4-11.3); NEUTROPHILS # (AUTO) 10.1 (2.1-6.9); NEUTROPHILS % 84.4 % (38.7-80.0); PLATELET COUNT 220 x10e3/uL (140-360); RED BLOOD COUNT 3.74 x10e6/uL (3.6-5.1); RED CELL DISTRIBUTION WIDTH 12.7 % (11.7-14.4)
[2019-11-14 14:44] LABS: CREATINE KINASE MB 5.3 ng/mL (0-5.0)
[2019-11-14 14:52] LABS: PROTHROMBIN TIME 13.7 seconds (11.9-14.5)
[2019-11-14 14:53] LABS: PARTIAL THROMBOPLASTIN TIME 37.5 seconds (23.8-35.5)
[2019-11-14 15:04] LABS: ALBUMIN 3.8 g/dL (3.5-5.0); ANION GAP 17.7 mmol/L (8-16); CALCIUM 9.3 mg/dL (8.4-10.2); CREATININE, SERUM 1.06 mg/dL (0.57-1.11); POTASSIUM 3.7 mmol/L (3.5-5.1)
[2019-11-14 15:06] LABS: BILIRUBIN,URINE NEGATIVE (NEGATIVE); CLARITY,URINE HAZY (CLEAR); COLOR,URINE YELLOW (YELLOW); KETONES,URINE NEGATIVE (NEGATIVE); LEUKOCYTE ESTERASE ,URINE 1+ (NEGATIVE); NITRITE,URINE POSITIVE (NEGATIVE); PROTEIN,URINE DIPSTICK 1+ (NEGATIVE); URINE UROBILINOGEN 0.2 mg/dL (0.2 - 1)
[2019-11-14 15:14] LABS: BACTERIA,URINE MANY /HPF
--- NOTE | 2019-11-14 15:28 | Diagnostic Imaging Report ---
EXAM: CHEST SINGLE (NOT PORTABLE) DATE: 11/14/2019 1:53 PM INDICATION: Fever, chills COMPARISON: 06/26/2019 IMPRESSION: The lungs are symmetrically expanded without evidence for focal consolidation, pneumothorax, or significant pleural effusion. The cardiomediastinal silhouette is within normal limits. There are postsurgical changes from left shoulder hemiarthroplasty. Degenerative changes noted of the right shoulder and visualized spine. No acute osseous abnormalities identified. Distended air-filled loops of bowel noted within the upper abdomen. Signed by: Dr. Dane Costello MD on 11/14/2019 3:25 PM
[2019-11-14] MEDS ORDERED: ACETAMINOPHEN 325 MG TAB PO ONE (15:30)
[2019-11-14] MEDS ORDERED: ACETAMINOPHEN 325 MG TAB ONE (15:37)
[2019-11-14] MEDS ORDERED: SODIUM CHLORIDE 0.9% 1000ML 1,000 ML IV STA ×2 (16:15)
[2019-11-14] MEDS ORDERED: ONDANSETRON HCL INJ 2MG/ML 2ML 2 MG/ML VIAL IV STA (16:15)
[2019-11-14] MEDS ORDERED: CEFTRIAXONE SOD 1 GM/NS 50 ML 50 ML IV SCH (16:30)
[2019-11-14] MEDS ORDERED: ONDANSETRON HCL INJ 2MG/ML 2ML 2 MG/ML VIAL IV PRN (16:30)
[2019-11-14] MEDS ORDERED: MORPHINE SULFATE 2 MG/ML SYR 1ML IV PRN (16:30)
[2019-11-14] MEDS ORDERED: CEFTRIAXONE SOD 1 GM/NS 50 ML 50 ML IV ONE (16:45)
--- NOTE | 2019-11-14 17:53 | Diagnostic Imaging Report ---
CT of the abdomen and pelvis, with contrast. History: Abdominal pain. Comparison: MRCP from 04/17/2017. Technique: Multidetector CT scanning of the abdomen and pelvis was performed from the level of the lung bases to the inferior pubic rami after intravenous and oral administration of contrast. Coronal and sagittal multiplanar reformations were obtained. RADIATION DOSE: Total DLP: 266.60 mGy*cm Dose modulation, iterative reconstruction, and/or weight based adjustment of the mA/kV was utilized to reduce the radiation dose to as low as reasonably achievable. FINDINGS: The lung bases demonstrate mild bibasilar atelectasis/scarring. The imaged portion of the heart demonstrates no significant abnormalities. The liver is normal in size and attenuation. A subcentimeter hypodensities identified within the inferior right hepatic lobe likely representing a cyst. The gallbladder is unremarkable. There is no significant biliary ductal dilatation. There is a small hiatal hernia present. The stomach is otherwise unremarkable. The spleen, pancreas, and bilateral adrenal glands are unremarkable. The kidneys are normal in size and location and enhance symmetrically. There is a 1.1 cm cyst identified within the inferior pole of the left kidney. There are additional subcentimeter hypodensities which are too small to definitively characterize. There is no evidence for hydronephrosis. There is no ureteral dilatation. The urinary bladder demonstrates no significant abnormalities. The uterus is surgically absent. No abnormal adnexal masses are identified. The abdominal aorta is normal in caliber with atherosclerotic calcifications within its course and branch vessels. The IVC is unremarkable. Please note evaluation of the bowel is limited without the use of enteric contrast material. There is interposition of colon anterior to the liver. The visualized loops of small and large bowel demonstrate no evidence of obstruction or inflammation. Diverticula are noted within the sigmoid and descending colon without evidence for acute diverticulitis. There is no ascites or intracranial free air. No abnormally enlarged lymph nodes are identified within the abdomen or pelvis. There are multilevel degenerative changes of the spine. The osseous structures otherwise demonstrate no evidence for acute fracture or destructive process. The extraperitoneal soft tissues are unremarkable. IMPRESSION: No acute abdominopelvic process identified. Diverticulosis coli without evidence for acute diverticulitis. Signed by: Dr. Dane Costello MD on 11/14/2019 5:49 PM
[2019-11-14] MEDS ORDERED: SODIUM CHLORIDE 0.9% 50ML 50 ML ONE (20:40)
[2019-11-14] MEDS ORDERED: IOPAMIDOL 370 MG/ML 200 ML INFUS..BTL INJ ONE (20:40)
[2019-11-14] MEDS: ACETAMINOPHEN 325 MG TAB PO PRN (21:46)
[2019-11-14] MEDS: SODIUM CHLORIDE 0.9% 1000ML 1,000 ML IV SCH ×2 (21:50→22:00)
[2019-11-15] VITALS (8 sets, daily range): BP systolic 122–130; BP diastolic 57–66
[2019-11-15] MEDS ORDERED: IBUPROFEN 600 MG TAB PO STA (00:08)
[2019-11-15] MEDS: SODIUM CHLORIDE 0.9% 1000ML 1,000 ML IV SCH ×3 (02:16→16:16)
[2019-11-15 06:35] LABS: BASOPHILS % 0.2 % (0.0-1.0); EOSINOPHILS % 0.1 % (0.0-6.0); HEMATOCRIT 33.7 % (34.2-44.1); HEMOGLOBIN 11.5 g/dL (12.0-16.0); LYMPHOCYTES # (AUTO) 0.7 (1.0-3.2); LYMPHOCYTES % 7.7 % (18.0-39.1); MEAN CORPUSCULAR HEMOGLOBIN 32.9 pg (28-32); MEAN CORPUSCULAR HGB CONC 34.1 g/dL (31-35); MEAN CORPUSCULAR VOLUME 96.3 fL (81-99); MONOCYTES # (AUTO) 0.5 (0.2-0.8); MONOCYTES % 5.5 % (4.4-11.3); NEUTROPHILS # (AUTO) 8.2 (2.1-6.9); PLATELET COUNT 177 x10e3/uL (140-360); RED CELL DISTRIBUTION WIDTH 12.9 % (11.7-14.4)
[2019-11-15 07:03] LABS: ALBUMIN 3.2 g/dL (3.5-5.0); ANION GAP 13.6 mmol/L (8-16); CALCIUM 8.8 mg/dL (8.4-10.2); CREATININE, SERUM 1.09 mg/dL (0.57-1.11); POTASSIUM 3.6 mmol/L (3.5-5.1)
--- NOTE | 2019-11-15 07:22 | NUR ---
assumed care of pt
[2019-11-15] MEDS: CEFTRIAXONE SOD 1 GM/NS 50 ML 50 ML IV SCH ×2 (08:12→21:07)
[2019-11-15] MEDS ORDERED: ATORVASTATIN CA10 MG PO (15:05)
[2019-11-15] MEDS ORDERED: CLOPIDOGREL75 MG PO (15:05)
[2019-11-15] MEDS ORDERED: NORTRIPTYLINE H10 MG PO (15:05)
[2019-11-15] MEDS ORDERED: LOSARTAN POTASS25 MG PO (15:13)
[2019-11-15] MEDS ORDERED: TYLENOL EXTRA500 MG PO (15:13)
[2019-11-15] MEDS ORDERED: HYDROCHLOROTHIA25 MG PO (15:13)
--- NOTE | 2019-11-15 16:30 | NUR ---
Report to AGNES Crockett
--- NOTE | 2019-11-15 16:44 | NUR ---
report received from ER, patient pending arrival to the floor, SBAR via telephone received, room prepared
[2019-11-15] MEDS: ACETAMINOPHEN 325 MG TAB PO PRN (17:49)
[2019-11-15] MEDS ORDERED: COLACE100 MG PO (18:30)
[2019-11-15] MEDS ORDERED: MYRBETRIQ50 MG PO (18:32)
--- NOTE | 2019-11-15 21:00 | NUR ---
Patient refused non skid socks.
[2019-11-15] MEDS: ATORVASTATIN 10 MG TAB PO SCH (21:07)
[2019-11-15] MEDS: NORTRIPTYLINE HCL 10 MG CAP PO SCH (21:07)
[2019-11-16] VITALS (7 sets, daily range): BP systolic 114–149; BP diastolic 58–74
--- NOTE | 2019-11-16 00:55 | History and Physical ---
CHIEF COMPLAINT: Dysuria. HISTORY OF PRESENT ILLNESS: The patient was seen early on the morning of 11/15/2019, this is a late entry. An 89-year-old female, has history of hypertension, hypothyroidism, comes into the emergency room with complaints of underlying dysuria ongoing for the last 3-4 days at home. She also reports subjective fevers at home. Denies any chest pain, palpitation, nausea, or vomiting. The patient reports she has never had a urinary tract infection before. She did not check her temperature at home. The patient seen and evaluated at bedside on the medical floor in the emergency room. She is currently doing much better today with no other issues at this time. REVIEW OF SYSTEMS: Pertinent positive: Underlying dysuria, subjective fever. Pertinent negative: Denies any chest pain palpitation, nausea, vomiting, hematuria, frequency, urgency, lightheadedness, abdominal pain, headaches, shortness of breath, or any other complaints. The rest of 14-point review of systems have been reviewed with the patient and are negative. ALLERGIES: SULFA DRUGS. HOME MEDICATIONS: 1. Aspirin. 2. Lipitor. 3. Plavix. 4. Colace. 5. Levothyroxine. 6. Losartan. 7. Nortriptyline. 8. Hydrochlorothiazide. PAST MEDICAL HISTORY: She has a history of hypothyroidism, hypertension, headaches. PAST SURGICAL HISTORY: None. FAMILY HISTORY: Hypertension, diabetes. SOCIAL HISTORY: No drugs, no alcohol, does not smoke. Good social support. PHYSICAL EXAMINATION: VITAL SIGNS: T-max was 102.1. Current temperature is 100.7, pulse is 85, respiratory rate is 20, blood pressure 123/60, pulse ox is 96% on 2 L nasal cannula. GENERAL: Not in acute distress, alert and oriented x3. Cooperative on examination. HEENT: Head is normocephalic and atraumatic. Eyes; pupils are equal, round, and reactive to light bilaterally. Extraocular movements intact bilaterally. NECK: Supple. Good range of motion. Throat; no evidence of any erythema or exudates in the posterior pharynx. Has poor dentition. PULMONARY: Clear to auscultation bilaterally. No wheezing, rales, or rhonchi. No crackles appreciated. CARDIOVASCULAR: Positive S1 and S2. No murmurs, rubs, or gallops appreciated. ABDOMEN: Soft, nondistended, nontender to palpation. Bowel sounds present. MUSCULOSKELETAL: Strength is 5/5 throughout. No evidence of any muscle deficits on examination. No weakness appreciated. NEUROLOGIC: Cranial nerve 2 through 12 grossly intact. No evidence of any neurological deficits on exam. SKIN: Intact. Warm to touch. Good cap refill. PSYCHIATRIC: Normal affect and mood. EXTREMITIES: No edema. Good range of motion throughout. LABORATORY FINDINGS: Show white count is 9.5, hemoglobin 11.5, hematocrit 33.7, platelets of 177. Coagulation; PT 13, INR 1, PTT 37.5. Chemistry; sodium 130, potassium is 3.6, chloride 98, bicarb 22, anion gap of 13, BUN 17, creatinine is 1, lactic acid 0.9, calcium 8.8. LFTs within normal range. Troponins were negative. Albumin 3.2. LDL was 48. Lipase was 13. Urinalysis consistent with UTI. Serology flu was negative. Microbiology; blood culture was positive one of two gram-negative rods. Urine culture; positive for gram-negative rods. IMAGING STUDIES: Chest x-ray showed no evidence of any focal consolidation, pneumothorax or significant pleural effusion. Distended air fluid, filled loops of bowel noted in the upper abdomen. CT abdomen and pelvis showed no acute abdominal pelvic process identified. Diverticulosis with no evidence of acute diverticulitis. IMPRESSION: 1. Sepsis secondary to underlying urinary tract infection, bacteremia. 2. Hyponatremia. 3. Hypertension. 4. Coronary artery disease. 5. Chronic headaches. PLAN: At this time, blood and urine cultures were collected with urine cultures positive and one of two blood cultures were positive. Continue with IV antibiotics with Rocephin. I will go ahead and consult with Infectious Disease, Dr. Crystal as well. As for the hyponatremia, the patient is currently on low-dose IV fluids. This is likely secondary to hydrochlorothiazide that she takes at home. We are going to resume same antihypertensive medications at this time. Monitor very closely. In terms of her history of CAD, continue with cardioprotective medications, Plavix, statins now. We will get PT/OT evaluation. Put on Lovenox for DVT prophylaxis. We will continue to monitor very closely. Gisela Rodrigez MD [email or web address]/MODL /[id number]
[2019-11-16] MEDS: SODIUM CHLORIDE 0.9% 1000ML 1,000 ML IV SCH ×2 (02:27→18:09)
[2019-11-16] MEDS: LEVOTHYROXINE SODIUM 75 MCG TAB PO SCH (05:05)
--- NOTE | 2019-11-16 05:49 | NUR ---
Dr. Crystal called the unit and made aware of the consultation.
[2019-11-16] MEDS ORDERED: LEVOTHYROXINE SODIUM 100 MCG TAB PO SCH (06:00)
--- NOTE | 2019-11-16 06:59 | NUR ---
Spoke with Dr. Rodrigez covering for Dr. Madrid regarding patient Urine Culture result. New orders received to D?C rocephin and start Meronem 500 mg IV q6 Hrs.
--- NOTE | 2019-11-16 07:55 | NUR ---
resume car of patient, SBAR report received from Tricia RN, patient placed on ISolation for ESBL(+) urine, on contact isolation at this time, awake alert, oriented X 4, walker at bedside, no respiratory distress noted, toileting offer and accepted, safety maintained, patient educated on dont fall call, call light within reach
[2019-11-16] MEDS: MEROPENEM 500MG/ NS 50ML 50 ML IV SCH ×3 (09:11→21:45)
[2019-11-16] MEDS: ASPIRIN 81 MG CHEW TAB PO SCH (09:11)
[2019-11-16] MEDS: CLOPIDOGREL BISULFATE 75 MG TAB PO SCH (09:11)
[2019-11-16] MEDS: LOSARTAN POTASSIUM 25 MG TAB PO SCH (09:11)
[2019-11-16] MEDS: DOCUSATE SODIUM 100 MG CAP PO SCH (09:11)
--- NOTE | 2019-11-16 11:17 | NUR ---
patient seen walking in hallway with PT for evaluation, able to ambulate with standby assistance with walker for stability
--- NOTE | 2019-11-16 12:27 | NUR ---
PT evaluation completed, patient is modified assist(kris): per Phyical therapist, PT is discontinued at this time Addendum: 11/16/19 at 1228 by GERALDINE FORMAN RN modified assist independent (kris)
[2019-11-16] MEDS ORDERED: BISACODYL 10 MG SUPP PR ONE (14:30)
--- NOTE | 2019-11-16 15:37 | NUR ---
SPOKE WITH PATIENT AND DAUGHTER VIA PHONE ABOUT [facility] FOR 2 WEEKS FOR IV ABX. SIGNED CHOICE FOR [facility], COMPLETED [facility] AND RTF FAXED CLINICALS
[2019-11-16] MEDS: ENOXAPARIN SOD INJ 40 MG/0.4 ML SYR SC SCH (16:20)
--- NOTE | 2019-11-16 20:01 | Diagnostic Imaging Report ---
EXAM: CHEST XRAY LINE PLACEMENT DATE: 11/16/2019 7:27 PM INDICATION: ^PICC line placement ^[id number] ^1939 COMPARISON: Chest x-ray, 11/14/2019 FINDINGS: Lines and tubes: Interval placement of left PICC with the tip extending to the mid SVC. Cardiac silhouette appears slightly prominent, likely upper normal accentuated by positioning. No focal pulmonary opacity, pleural effusion or pneumothorax. Minimal linear atelectasis at the lung bases. No acute bony abnormality. Arthroplasty hardware is again seen at the left shoulder. Upper abdomen unremarkable with no free air. IMPRESSION: 1. Interval placement of left PICC extending to mid SVC. 2. No evidence for acute disease or significant change in the chest. Signed by: Dr. Tree Adamson M.D. on 11/16/2019 7:57 PM
[2019-11-16] MEDS: ATORVASTATIN 10 MG TAB PO SCH (22:05)
[2019-11-16] MEDS: NORTRIPTYLINE HCL 10 MG CAP PO SCH (22:05)
[2019-11-17] VITALS (8 sets, daily range): BP systolic 119–160; BP diastolic 58–89
--- NOTE | 2019-11-17 00:45 | Progress Note ---
DATE: 11/16/2019 Medicine Progress Note SUBJECTIVE: The patient states doing much better today with no complaints. Urine culture was consistent with ESBL E coli. LABORATORY FINDINGS: Show white count 9.5, hemoglobin 9.5, hematocrit 34, platelets of 177. Coagulation PT 13, INR 1, PTT 37.5. Chemistry sodium 130, potassium 3.6, chloride 98, bicarb 22, anion gap of 13. BUN 17, creatinine is 1, glucose 96, lactic acid is 0.9, calcium is 8.8. LFTs are noted to be within normal range. LDL is 40. Lipase is 13. MICROBIOLOGY: The blood culture one of two shows gram-negative bacilli. Urine culture was found to be ESBL E coli. Repeat blood cultures are pending. IMAGING STUDIES: None. PHYSICAL EXAMINATION: VITAL SIGNS: Temperature was 100.4 recorded now, T-max is 100.4. Earlier, she was afebrile. Pulse 94, respiratory rate 21, blood pressure 114/74, pulse ox 100% on 2 L nasal cannula. GENERAL: Not in acute distress, alert and oriented x3. Cooperative on examination. HEENT: Head is normocephalic and atraumatic. Eyes; pupils are equal, round, and reactive to light bilaterally. Extraocular movements intact bilaterally. NECK: Supple. Good range of motion. Throat; no evidence of any erythema or exudates in the posterior pharynx. Has poor dentition. PULMONARY: Clear to auscultation bilaterally. No wheezing, rales, or rhonchi. No crackles appreciated. CARDIOVASCULAR: Positive S1 and S2. No murmurs, rubs, or gallops appreciated. ABDOMEN: Soft, nondistended, nontender to palpation. Bowel sounds present. MUSCULOSKELETAL: Strength is 5/5 throughout. No evidence of any muscle deficits on examination. No weakness appreciated. NEUROLOGIC: Cranial nerve 2 through 12 grossly intact. No evidence of any neurological deficits on exam. SKIN: Intact. Warm to touch. Good cap refill. PSYCHIATRIC: Normal affect and mood. EXTREMITIES: No edema. Good range of motion throughout. IMPRESSION: 1. Sepsis, secondary to urinary tract infection and bacteremia, extended-spectrum beta-lactamase Escherichia coli, pending blood culture identification sensitivity. 2. Hyponatremia. 3. Hypertension. 4. Coronary artery disease. 5. Chronic headaches. PLAN: At this time, blood cultures one of two was positive for gram negative bacilli pending ID and sensitivities. Urine culture consistent with E. coli ESBL. Antibiotics changed to IV Merrem. Repeat blood cultures x2. ID consultation. PICC line has been placed for outpatient IV antibiotics. I will discuss this with Case Management to arrange for home for 14 days or a facility up to the patient's discretion. Family wants to have Urology evaluation, which I will go ahead and consult with them. Continue with antihypertensive medications. PT and OT. Lovenox for DVT prophylaxis. A.m. labs. MD LEO García/KATY /[id number]
[2019-11-17] MEDS: MEROPENEM 500MG/ NS 50ML 50 ML IV SCH ×4 (02:32→21:19)
[2019-11-17] MEDS: SODIUM CHLORIDE 0.9% 1000ML 1,000 ML IV SCH ×2 (05:43→19:03)
[2019-11-17] MEDS: LEVOTHYROXINE SODIUM 75 MCG TAB PO SCH (07:20)
--- NOTE | 2019-11-17 07:21 | NUR ---
patient condition throughout the night was stable, patient endorsed to next shift.
[2019-11-17 07:23] LABS: BASOPHILS % 0.3 % (0.0-1.0); EOSINOPHILS # (AUTO) 0.1 (0.0-0.4); EOSINOPHILS % 1.5 % (0.0-6.0); HEMATOCRIT 28.6 % (34.2-44.1); HEMOGLOBIN 9.7 g/dL (12.0-16.0); LYMPHOCYTES # (AUTO) 0.9 (1.0-3.2); LYMPHOCYTES % 12.9 % (18.0-39.1); MEAN CORPUSCULAR HEMOGLOBIN 32.4 pg (28-32); MEAN CORPUSCULAR HGB CONC 33.9 g/dL (31-35); MEAN CORPUSCULAR VOLUME 95.7 fL (81-99); MONOCYTES # (AUTO) 0.9 (0.2-0.8); MONOCYTES % 12.7 % (4.4-11.3); NEUTROPHILS # (AUTO) 5.2 (2.1-6.9); NEUTROPHILS % 72.3 % (38.7-80.0); PLATELET COUNT 159 x10e3/uL (140-360); RED BLOOD COUNT 2.99 x10e6/uL (3.6-5.1); RED CELL DISTRIBUTION WIDTH 12.9 % (11.7-14.4)
--- NOTE | 2019-11-17 07:30 | NUR ---
PT UP IN BED ,DENIES PAIN,NO DISTRESS NOTED.
[2019-11-17 07:40] LABS: BLOOD UREA NITROGEN 11 mg/dL (7-26); BUN/CREATININE RATIO 13 (6-25); CALCIUM 7.8 mg/dL (8.4-10.2); CARBON DIOXIDE 21 mmol/L (22-29); CHLORIDE 100 mmol/L (98-107); CREATININE, SERUM 0.84 mg/dL (0.57-1.11); EST GLOMERULAR FILTRATION RATE > 60 ML/MIN (60-); GLUCOSE 86 mg/dL (74-118); SODIUM 129 mmol/L (136-145)
[2019-11-17] MEDS: DOCUSATE SODIUM 100 MG CAP PO SCH (09:26)
[2019-11-17] MEDS: ASPIRIN 81 MG CHEW TAB PO SCH (09:26)
[2019-11-17] MEDS: CLOPIDOGREL BISULFATE 75 MG TAB PO SCH (09:26)
[2019-11-17] MEDS: LOSARTAN POTASSIUM 25 MG TAB PO SCH (09:26)
--- NOTE | 2019-11-17 11:31 | NUR ---
NURSING HOME FACILITY DISCHARGE INFORMATION PATIENT HAS BEEN ACCEPTED TO: NAME: HAKAN ADDRESS:[id number] ACCEPTING NATUROPATHIC DOCTOR: LITTLE ANN ACCEPTING MD: FARIDA ROOM: 120 NURSE CALL REPORT TO: [phone] IMM SIGNED AND OBTAINED (if applicable): YES THE FOLLOWING DOCUMENTS MUST ACCOMPANY PATIENT FOR TRANSFER: COPIED CHART: YES
--- NOTE | 2019-11-17 12:30 | NUR ---
DR OLIVA HERE
--- NOTE | 2019-11-17 15:59 | Consultation ---
DATE OF CONSULTATION: REASON FOR CONSULTATION: UTI, pyelonephritis. HISTORY OF PRESENT ILLNESS: This patient is a very pleasant 89-year-old white female, looks really healthy. She does have underlying history of hypertension, hyperlipidemia, comes in with fever and chills for 3 to 4 days and pain. The patient comes into the emergency room where she was admitted. She has been having urgency and frequency for 3 days, when she came here she did have some pain on the right side of the flank. The patient was admitted on antibiotic. She is feeling better, but she is still feeling kind of sick. PAST MEDICAL HISTORY: Hypothyroidism, hypertension, hyperlipidemia, headache. PAST SURGICAL HISTORY: Denies. ALLERGIES: SULFA. SOCIAL HISTORY: There is no smoking, drug abuse, or alcohol abuse. FAMILY HISTORY: Otherwise unremarkable. REVIEW OF SYSTEMS: HEENT: There is no headache, visual changes, hearing changes. GI: There is no nausea. No vomiting. No diarrhea. CARDIAC: There is no arrhythmia. NEURO: No seizure activity. SKIN: There is no rash. All other systems within normal limit. LABORATORY DATA: Reviewed. Her urine showed E coli ESBL. Blood cultures, gram-negative rods. White count 11.99, hemoglobin 12.2. Sodium 130, potassium 3.6 with creatinine 1.09. The patient was currently on meropenem, Cozaar. She had a CT scan of abdomen and pelvis, which showed no acute process. PHYSICAL EXAMINATION: GENERAL: The patient is currently alert, oriented, does not seem to be in acute distress. VITAL SIGNS: Stable, currently afebrile. HEENT: She is not icteric. NECK: Supple. CHEST: Clear. HEART: S1, S2. No S3, S4, or murmur. ABDOMEN: Soft. Bowel sounds present. No tenderness. No hepatosplenomegaly. EXTREMITIES: No edema. SKIN: No rash. IMPRESSION: Pyelonephritis with Escherichia coli extended-spectrum beta-lactamases. Agree with meropenem. We will keep her on meropenem for the next few days. Await final culture and sensitivity. Recheck her blood cultures. Recheck CBC. We will follow with you. MD CHAYA Wagner/KATY /[id number]
[2019-11-17] MEDS: ENOXAPARIN SOD INJ 40 MG/0.4 ML SYR SC SCH (17:00)
--- NOTE | 2019-11-17 17:43 | NUR ---
NO CHANGE IN PT STATUS,PT RESTING ,DENIES PIAN.
[2019-11-17] MEDS: ACETAMINOPHEN 325 MG TAB PO PRN (18:54)
[2019-11-17] MEDS ORDERED: POTASSIUM CHLORIDE 20 MEQ TAB CR PO ONE (21:45)
[2019-11-17] MEDS: NORTRIPTYLINE HCL 10 MG CAP PO SCH (22:10)
[2019-11-17] MEDS: ATORVASTATIN 10 MG TAB PO SCH (22:10)
[2019-11-18] VITALS: BP_SYST 128; BP_SYST 133; BP_DIAS 74; BP_DIAS 80
--- NOTE | 2019-11-18 00:23 | Progress Note ---
DATE: 11/17/2019 SUBJECTIVE: The patient is doing well, sitting in a chair at the bedside. She has been accepted at half-way facility. The patient does not want to do antibiotics at home. She has been accepted. We are going to arrange for 2 weeks of IV Merrem. OBJECTIVE: VITAL SIGNS: Temperature is 99, pulse 83, respiratory rate is 19, blood pressure 139/61, and pulse ox 100% on 2 L nasal cannula. GENERAL: In no acute distress, alert and oriented x3. Cooperative on examination. HEENT: Head is normocephalic and atraumatic. Eyes, pupils are equal and reactive to light bilaterally. Extraocular movements intact. NECK: Supple. Good range of motion. THROAT: No evidence of erythema or exudates in the posterior pharynx. Has poor dentition. PULMONARY: Clear to auscultation bilaterally. No wheezing, rales, or rhonchi. No crackles appreciated. CARDIOVASCULAR: Positive S1 and S2. No murmurs, rubs, or gallops appreciated. ABDOMEN: Soft, nondistended, and nontender to palpation. Bowel sounds present. MUSCULOSKELETAL: Strength is 5/5 throughout. No evidence of muscle deficits on examination. No weakness appreciated. NEUROLOGICAL: Cranial nerves II through XII grossly intact. No evidence of any neurological deficits of exam. SKIN: Intact. Warm to touch. Good cap refill. PSYCHIATRIC: Normal affect and mood. EXTREMITIES: No edema. Good range of motion throughout. LABORATORY FINDINGS: White count 7.1, hemoglobin 9.7, hematocrit is 28, and platelets of 159. Chemistries reviewed; sodium was 129, potassium is 3, chloride is 100, bicarb 29, anion gap is 11, BUN is 11, creatinine is 0.84, and calcium is 7.8. MICROBIOLOGY: Repeat blood cultures no growth. Initial blood culture one of two shows E coli, ESBL. Urine culture was found to be ESBL, E coli as well. IMPRESSION: 1. Sepsis secondary to Extended-spectrum beta-lactamases bacteremia and urinary tract infection. 2. Hyponatremia. 3. Hypertension. 4. Coronary artery disease. 5. Chronic headaches. 6. Electrolyte abnormalities. PLAN: Blood culture one of two was positive for ESBL E coli. Repeat blood cultures no growth today. Continue with IV Merrem for total of 14 days and arrange for half-way facility which she has been accepted too. We will continue with IV antibiotics for now. Monitor repeat blood cultures. PICC line has been in place. The patient refuses home health with home IV antibiotics. We will arrange for half-way facility placement. Replace potassium accordingly. Get a.m. labs. Lovenox for DVT prophylaxis. Continue with same plan of care and monitor very closely. MD LEO García/KATY /[id number]
[2019-11-18] MEDS: MEROPENEM 500MG/ NS 50ML 50 ML IV SCH ×3 (02:00→14:00)
[2019-11-18] MEDS: LEVOTHYROXINE SODIUM 75 MCG TAB PO SCH (05:46)
[2019-11-18 06:45] LABS: BASOPHILS % 0.8 % (0.0-1.0); EOSINOPHILS # (AUTO) 0.2 (0.0-0.4); EOSINOPHILS % 4.6 % (0.0-6.0); HEMATOCRIT 31.7 % (34.2-44.1); HEMOGLOBIN 10.5 g/dL (12.0-16.0); LYMPHOCYTES # (AUTO) 0.9 (1.0-3.2); LYMPHOCYTES % 16.3 % (18.0-39.1); MEAN CORPUSCULAR HEMOGLOBIN 32.2 pg (28-32); MEAN CORPUSCULAR HGB CONC 33.1 g/dL (31-35); MEAN CORPUSCULAR VOLUME 97.2 fL (81-99); MONOCYTES # (AUTO) 0.9 (0.2-0.8); MONOCYTES % 17.1 % (4.4-11.3); NEUTROPHILS # (AUTO) 3.2 (2.1-6.9); NEUTROPHILS % 60.6 % (38.7-80.0); PLATELET COUNT 165 x10e3/uL (140-360); RED BLOOD COUNT 3.26 x10e6/uL (3.6-5.1)
[2019-11-18 07:03] LABS: ANION GAP 11.9 mmol/L (8-16); BLOOD UREA NITROGEN 9 mg/dL (7-26); BUN/CREATININE RATIO 12 (6-25); CALCIUM 8.7 mg/dL (8.4-10.2); CARBON DIOXIDE 21 mmol/L (22-29); CHLORIDE 106 mmol/L (98-107); CREATININE, SERUM 0.77 mg/dL (0.57-1.11); EST GLOMERULAR FILTRATION RATE > 60 ML/MIN (60-); GLUCOSE 97 mg/dL (74-118); POTASSIUM 3.9 mmol/L (3.5-5.1); SODIUM 135 mmol/L (136-145)
--- NOTE | 2019-11-18 07:08 | NUR ---
patient condition throughout the night was stable, patient endorsed to next shift for continuity of care.
--- NOTE | 2019-11-18 07:30 | NUR ---
PT RESTING NO DISTRESS NOTED DENIES PAIN ,C/O CONSTIPATION
[2019-11-18 07:35] VITALS: BP 133/80
[2019-11-18 07:48] VITALS: BP 136/76
[2019-11-18] MEDS: SODIUM CHLORIDE 0.9% 1000ML 1,000 ML IV SCH (08:23)
[2019-11-18] MEDS: ASPIRIN 81 MG CHEW TAB PO SCH (08:39)
[2019-11-18] MEDS: CLOPIDOGREL BISULFATE 75 MG TAB PO SCH (08:39)
[2019-11-18] MEDS: DOCUSATE SODIUM 100 MG CAP PO SCH (08:39)
[2019-11-18] MEDS: LOSARTAN POTASSIUM 25 MG TAB PO SCH (08:39)
[2019-11-18] MEDS ORDERED: MAGNESIUM HYDROXIDE 30 ML UDC PO ONE (09:00)
--- NOTE | 2019-11-18 09:00 | NUR ---
MEDCIATED WITH MOM ,PT HAD LARGE BM
[2019-11-18 11:42] VITALS: BP 146/70
[2019-11-18] MEDS ORDERED: MERREM500 MG IV (16:00)
[2019-11-18 16:04] VITALS: BP 167/89
[2019-11-18] MEDS: ENOXAPARIN SOD INJ 40 MG/0.4 ML SYR SC SCH (17:09)
--- NOTE | 2019-11-18 17:59 | NUR ---
[facility] HERE TO TRANSPORT PT TO [facility],PIC LINE IN PLACE PATENT.
--- NOTE | 2019-11-19 00:58 | Discharge Summary ---
FINAL DISCHARGE DIAGNOSES: 1. Sepsis secondary to extended-spectrum beta-lactamases bacteremia and extended-spectrum beta-lactamases urinary tract infection. 2. Hyponatremia, resolved. 3. Hypertension. 4. History of coronary artery disease. 5. Chronic headaches, resolved. 6. Electrolyte abnormalities. CONSULTANTS: Infectious Disease. PHYSICAL EXAMINATION: VITAL SIGNS: Temperature is 97.2, pulse 102, respiratory rate is 18, blood pressure 146/70, pulse ox 99% on room air. LABORATORY FINDINGS: Show white count 5.2, hemoglobin 10.5, hematocrit 31.7, platelets of 165. Coagulation; PT 13, INR 1, PTT is 37. Chemistry; sodium 135, potassium 3.9, chloride is 106, bicarb 21, anion gap of 11, BUN is 9, creatinine is 0.77, glucose is 97, lactic acid is 0.9, calcium is 8.7. LFTs within normal range. Albumin was 3.2, LDL was 48, lipase is 13. Urinalysis concerning for UTI. Flu was negative. MICROBIOLOGY: Blood cultures one of two was positive for ESBL E coli. Urine culture was positive for ESBL E coli. Repeat blood cultures were found to be negative. IMAGING STUDIES: Chest x-ray showed distended air-filled loops of small bowel within the upper abdomen which resolved. Otherwise, she had everything within normal range. No other further workup is needed based on the chest x-ray or any other imaging needed. CT abdomen and pelvis shows no acute abdominopelvic process identified. Diverticulosis coli with no evidence of acute diverticulitis. HOSPITAL COURSE: This is an 89-year-old female, who came into the ED with complaints of underlying dysuria, found to have ESBL E coli, urinary tract infection as well as bacteremia. The patient was treated for underlying sepsis. She was found to have a fever and elevated white count. ID was consulted. Blood cultures were noted one of two ESBL E coli as well as urine culture consistent with ESBL E coli. Antibiotics were changed while here in the hospital state IV Merrem. PICC line was in place and needed four weeks of IV antibiotic therapy as recommended by Infectious Disease. The patient otherwise was doing well. She was found to be hyponatremic, which resolved with IV fluid hydration. Blood pressure was stable. All her medications were continued while here in the hospital stay. The patient was eventually discharged to [facility] facility to complete 14 days of IV antibiotic therapy. The patient was cleared for discharge by ID. On the day of discharge, vital signs were stable, labs reviewed and stable. The patient was seen, evaluated and examined thoroughly on the day of discharge. No other complaints. The patient verbalized understanding and agrees to plan of care to follow up accordingly as an outpatient with the primary care physician in 1 week and the rest of the consult is described above in about 2 weeks' time. MEDICATIONS: See med reconciliation form. DISPOSITION: Home. CONDITION: Stable. DIET: Heart healthy. In the event of any worsening symptoms, the patient was come back to the ED for further evaluation. Discharge summary took greater than 35 minutes. MD LEO García/KATY /[id number]
== END 2019-11-18 18:12 | DRG 872 ==
LOC: ER 13:08 → ERHOLD 16:19 → MED/SURG3 11-15 17:32
PROVIDERS: ADMIT Internal Medicine; ATTEND Internal Medicine
PROC: 02HV33Z Insertion of Infusion Device into Superior Vena Cava, Percutaneous Approach (ICD-10-PCS; principal; 2019-11-16)
DX: A41.51 Sepsis due to Escherichia coli [E. coli] (principal); E87.1 Hypo-osmolality and hyponatremia; Z16.12 Extended spectrum beta lactamase (ESBL) resistance; N12 Tubulo-interstitial nephritis, not specified as acute or chronic; I10 Essential (primary) hypertension; I25.10 Atherosclerotic heart disease of native coronary artery without angina pectoris; E87.8 Other disorders of electrolyte and fluid balance, not elsewhere classified; E78.5 Hyperlipidemia, unspecified; E03.9 Hypothyroidism, unspecified
CPT/HCPCS: 36415; 36569; 71045; 74177; 80048; 80053; 80061; 81001; 82550; 82553; 83605; 83690; 83880; 84484; 85025; 85610; 85730; 87040; 87071; 87086; 87186; 87205; 87400; 93005; 99284; J0696; J1650; J2270; J2405; J7030; Q9967

== ENCOUNTER 2020-03-13 16:31 | Emergency (ER) | payer MEDICARE, OTHER ==
[~2020-03-13] VITALS: Ht 160 cm; Wt 70.3 kg
[~2020-03-13 16:31] MED LIST changes: +ATORVASTATIN CA10 MG PO; +CLOPIDOGREL75 MG PO; +COLACE100 MG PO; +HYDROCHLOROTHIA25 MG PO; +LOSARTAN POTASS25 MG PO; +MERREM500 MG IV; +NORTRIPTYLINE H10 MG PO; +TYLENOL EXTRA500 MG PO
[2020-03-13] MEDS ORDERED: CYCLOBENZAPRINE HCL 10 MG TAB PO ONE (16:45)
[2020-03-13] MEDS ORDERED: HYDROCODONE/APAP 5MG-325MG TAB PO ONE (16:45)
--- NOTE | 2020-03-13 17:53 | Diagnostic Imaging Report ---
Exam: Head CT without contrast History: Trauma, fall Comparison studies: Head CT 12/16/2019. Technique: Axial images were obtained from the skull base to the vertex. Coronal and sagittal images reconstructed from the axial data. Dose modulation, iterative reconstruction, and/or weight based adjustment of the mA/kV was utilized to reduce the radiation dose to as low as reasonably achievable. Radiation dose: Not available the time of dictation per Findings: Scalp: No abnormalities. Bones: No fractures, blastic or lytic lesions. Brain sulci: Left hemispheric sulci are partially effaced. Remaining sulci are mildly prominent.. Ventricles: Mild compensatory dilatation. No hydrocephalus Extra-axial spaces: Left frontoparietotemporal heterogeneously hyperdense subdural hematoma measures approximately 9 mm in max thickness. Regional mass effect results in effacement of left hemispheric sulci and 5 mm left to right midline shift with mild subfalcine herniation. No uncal herniation. Parenchyma: No mass, acute hemorrhage or acute orbital insults. Unchanged chronic insults in the bilateral posterior cerebellar hemispheres (left greater than right). A few scattered hypodensities in the supratentorial white matter are nonspecific but are most compatible with chronic microvascular ischemic changes. Sellar/suprasellar region: No abnormalities. Craniocervical junction: Patent foramen magnum. No Chiari one malformation. Incidental findings: Lateral intraocular lens replacement. Atherosclerotic calcifications in the carotid siphons. IMPRESSION: 1. Acute 9 mm thick left hemispheric subdural hematoma results in 5 mm left to right subfalcine shift. No uncal herniation or hydrocephalus. 2. No other changes from the prior head CT on 12/06/2019. 3. Mild generalized parenchymal volume loss. 4. Mild chronic microvascular ischemic changes and small chronic bilateral cerebellar infarcts. Findings were discussed with Dr. Chin at 5:47 PM on 03/13/2020. Signed by: Dr. Sav Cary M.D. on 03/13/2020 5:50 PM
[2020-03-13] MEDS ORDERED: SODIUM CHLORIDE FLUSH 10 ML SYR INJ PRN (18:00)
--- NOTE | 2020-03-13 18:04 | Diagnostic Imaging Report ---
History: Trauma Comparison studies: None per Technique: Axial images were obtained through the maxillofacial region. Coronal and sagittal images reconstructed from the axial data. Dose modulation, iterative reconstruction, and/or weight based adjustment of the mA/kV was utilized to reduce the radiation dose to as low as reasonably achievable. Radiation dose: Not available at the time of dictation. Intravenous contrast: None Findings: Soft tissues: Left periorbital and perinasal soft tissue swelling. Bones: No fractures or bony abnormalities. Orbits: Bilateral intraocular lens replacements. The left lens is calcified. No other orbital abnormalities. Paranasal sinuses: Clear. Middle ear mastoid cavities: Left mastoid tip is partially opacified and sclerotic as sequela of chronic inflammation. Remaining middle ear and mastoid cavities bilaterally are clear. Incidental findings: Torus mandibularis. Degenerative changes in the partially imaged cervical spine. Calcified atherosclerosis in the carotid bulbs and in the internal carotid arteries. IMPRESSION: 1. Left periorbital and perinasal soft tissue swelling. 2. No maxillofacial fracture. Signed by: Dr. Sav Cary M.D. on 03/13/2020 6:00 PM
[2020-03-13 18:05] LABS: BASOPHILS % 0.3 % (0.0-1.0); EOSINOPHILS % 0.4 % (0.0-6.0); HEMATOCRIT 33.7 % (34.2-44.1); HEMOGLOBIN 11.5 g/dL (12.0-16.0); LYMPHOCYTES # (AUTO) 0.7 (1.0-3.2); LYMPHOCYTES % 6.8 % (18.0-39.1); MEAN CORPUSCULAR HEMOGLOBIN 32.4 pg (28-32); MEAN CORPUSCULAR HGB CONC 34.1 g/dL (31-35); MEAN CORPUSCULAR VOLUME 94.9 fL (81-99); MONOCYTES # (AUTO) 0.6 (0.2-0.8); MONOCYTES % 5.6 % (4.4-11.3); NEUTROPHILS # (AUTO) 9.1 (2.1-6.9); NEUTROPHILS % 86.6 % (38.7-80.0); PLATELET COUNT 219 x10e3/uL (140-360); RED BLOOD COUNT 3.55 x10e6/uL (3.6-5.1); RED CELL DISTRIBUTION WIDTH 12.4 % (11.7-14.4)
--- NOTE | 2020-03-13 18:09 | Diagnostic Imaging Report ---
Radiographs of the left shoulder - HISTORY: Pain COMPARISON: None available. FINDINGS: Bones: Comminuted fracture involving the left humeral neck with soft tissue swelling. Osseous alignment is within normal limits. Joints: Scattered degenerative change with metallic humeral head prosthesis which articulates with the glenoid. Soft tissues: Soft tissue swelling IMPRESSION: Comminuted fracture involving the left humeral neck with soft tissue swelling. Signed by: Dr. Mike Wilde M.D. on 03/13/2020 6:05 PM
--- NOTE | 2020-03-13 18:14 | Diagnostic Imaging Report ---
History: Trauma, fall Comparison studies: Included upper cervical spine from head CT 05/27/2016. Technique: Axial images were obtained through the cervical region. Coronal and sagittal images reconstructed from the axial data. Dose modulation, iterative reconstruction, and/or weight based adjustment of the mA/kV was utilized to reduce the radiation dose to as low as reasonably achievable. Intravenous contrast: None Findings: Atlantoaxial articulation: Intact. Alignment: Straightened cervical curvature may be positional. Mild convex left cervical curvature is nonspecific. Minimal anterolisthesis of C7 on T1 and T1 on T2 are most likely degenerative in etiology. Cervicomedullary junction: No abnormalities. The foramen magnum is patent. Soft tissues: No gross acute abnormalities. Vertebrae: No acute fracture, infection or neoplasm. A 3 mm corticated ossification near the occipital-C1 articulation medially is unchanged from the remote head CT which date to 05/27/2026 and may be degenerative or sequela of chronic record. Degenerative changes: Anterior bridging osteophyte from C3 to C7 indent the prevertebral soft tissues, the largest of these is at C3-C4. Multilevel disc degeneration, worse/severe at C4-C5 and moderate at C5-C6 and C6-C7. Disc osteophyte complexes from C4 to C7 indent the thecal sac and result in mild canal stenosis at C4-C5. Multilevel facet arthrosis with severe facet arthrosis and fused facets on the left at C2-C3. Multilevel uncovertebral facet arthrosis result in multilevel foraminal stenosis which is severe right and mild left at C4-C5, moderate right and mild left at C5-C6 and moderate right and mild left at C6-C7. Incidental findings: Scattered calcified atherosclerosis with moderate calcified plaque in the carotid bulbs and proximal internal carotid arteries. IMPRESSION: 1. No acute cervical spine fracture or subluxation. 2. Multilevel degenerative changes as described. 3. Ligament, spinal cord and or vascular abnormalities cannot be excluded on the basis of this examination Signed by: Dr. Sav Cary M.D. on 03/13/2020 6:10 PM
[2020-03-13 18:15] LABS: INR 0.99; PARTIAL THROMBOPLASTIN TIME 32.6 seconds (23.8-35.5); PROTHROMBIN TIME 13.7 seconds (11.9-14.5)
[2020-03-13 18:22] LABS: ALBUMIN 3.7 g/dL (3.5-5.0); ALBUMIN/GLOBULIN RATIO 1.2 (0.8-2.0); ANION GAP 12.3 mmol/L (8-16); CALCIUM 8.7 mg/dL (8.4-10.2); CREATININE, SERUM 1.02 mg/dL (0.57-1.11); POTASSIUM 4.3 mmol/L (3.5-5.1)
--- NOTE | 2020-03-13 19:22 | NUR ---
[facility] called at this time. ETA 2020.
--- NOTE | 2020-03-13 20:46 | NUR ---
Spoke to [facility] at this time. ETA 2115 at this time.
--- NOTE | 2020-03-13 20:52 | NUR ---
[facility] ETA 15 minutes at this time. [facility] canceled at this time.
[2020-03-13] MEDS ORDERED: ONDANSETRON HCL INJ 2MG/ML 2ML 2 MG/ML VIAL IV STA (21:22)
--- NOTE | 2020-03-13 21:44 | NUR ---
PT TRANSFERRED VIA EMS AT THIS TIME.
[2020-03-13 21:46] VITALS: BP 134/73
== END 2020-03-13 21:49 | disposition other institution (70) ==
LOC: ER 16:31
DX: S06.5X0A Traumatic subdural hemorrhage without loss of consciousness, initial encounter (principal); S42.302A Unspecified fracture of shaft of humerus, left arm, initial encounter for closed fracture; W01.0XXA Fall on same level from slipping, tripping and stumbling without subsequent striking against object, initial encounter; Y92.008 Other place in unspecified non-institutional (private) residence as the place of occurrence of the external cause; I10 Essential (primary) hypertension; Z86.73 Personal history of transient ischemic attack (TIA), and cerebral infarction without residual deficits; Z95.5 Presence of coronary angioplasty implant and graft
CPT/HCPCS: 36415; 70450; 70486; 72125; 73030; 80053; 85025; 85610; 85730; 99284; J2405